=== PATIENT | female | born 1985 ===

== ENCOUNTER 2017-11-12 19:58 | Inpatient (IN) | payer MEDICAID ==
[2017-11-12 20:19] VITALS: BMI 28.3
[2017-11-12] MEDS ORDERED: Oxytocin 30 units/LR 500ML 30 U/500 ML BAG IV ONE (21:48)
[2017-11-12] MEDS: Lactated Ringer's 1,000 ML IV ONE (23:30)
[2017-11-12] MEDS ORDERED: Oxytocin 30 UNITS in Sodium Chloride 0.9% 500 ML IV ONE (23:42)
[2017-11-13 00:08] LABS: BASO % 0.1 % (0.0-2.0); HEMOGLOBIN 11.4 g/dL (12.0-16.0); LYMPH % 7.6 % (20.0-40.0); MEAN CORPUSCULAR HEMOGLOBIN 26.6 pg (27.0-31.0); MEAN PLATELET VOLUME 9.5 fl (7.2-11.7); MONO # 0.2 K/uL (0.0-0.8); MONO % 1.2 % (0.0-10.0); NEUT # 12.1 K/uL (1.8-7.0); NEUT % 91.1 % (50.0-75.0); NRBC % 0.1 % (0.0-0.0); PLATELET COUNT 221 K/uL (130-400); RBC 4.29 Mil/uL (3.80-5.20); RED CELL DISTRIBUTION WIDTH 14.2 % (11.5-14.5); WHITE BLOOD COUNT 13.3 K/uL (4.8-10.8)
--- NOTE | 2017-11-13 00:10 | OBADHP ---
Datetime: 11/12/2017 23:45 IP Adm Impression Other: PPROM, Labor Admit Comment, IP Provider: at 34.0 wks GA transferred from due to PPROM and labor. Pt presented to hospital c/o contractions. While at pt grossly ruptured, pt c/o leaking fluid si nce. Denies VB. Reports good FM. Pt reports course unremarkable. PMHx denies PSHx denies Meds PNV OBHx x 2 SocHx No tob,etoh,drugs PhysExam: refer to findings A: 34.0wks GA with PPROM, labor; Category I FHT P: I discussed case with MFM who recommended delivery. I discussed plan with patient. I discussed w ith patient the risks of prematurity and also discussed the risk of maintaining after ROM a t 34wks GA. I recommended augmentation for delivery. After discussion of all options, pt agrees wit h plan. All done through paleobotanist. Plan for pitocin augmentation, IV abx for GBS proph. Neonatology notified. Pelvic Type - PN: Adequate Extremities - PN: Normal Abdomen - PN: Normal Back - PN: Normal Breast - PN: Normal Lungs - PN: Normal Heart - PN: Normal Thyroid - PN: Normal Neurologic - PN: Normal HEENT - PN: Normal General - PN: Normal FHR - Baseline A Provider: 120s-130s Membranes, Provider: Ruptured Contraction Comments Provider: q4-5min Comments, ACOG Physical Exam: Bedside sono- vertex presentation Vital Signs Provider: Reviewed; Within Normal Limits IP Chief Complaint: Uterine contractions; Suspected ruptured membranes NICHD Variability Prov Fetus A: Moderate 6-25bpm NICHD Accel Fetus A IP Provider: 15X15 FHR Category Provider Fetus A: Category I NICHD Decel Fetus A IP Provider: None Dilatation, Provider: 2 Effacement, Provider: 25 Station, Provider: -3 Genitourinary Exam: Normal DTRs - PN: Normal EGA AdmitDate IP: 34.0 IP Admit Plan: Admit to unit; Initiate labor protocol
[2017-11-13] MEDS: Lactated Ringer's 1,000 ML IV ONE (01:00)
[2017-11-13 01:31] LABS: LYMPHOCYTE 8 % (20-50); MONOCYTE 1 % (0-10); NEUTROPHIL 91 % (42-75); TOTAL CELLS COUNTED 100
[2017-11-13 01:32] LABS: HYPOCHROMIC SLIGHT; PLATELET ESTIMATE NORMAL (NORMAL); TOXIC GRANULATION PRESENT
[2017-11-13] MEDS: Lactated Ringer's 1,000 ML IV SCH ×3 (02:00→17:30)
[2017-11-13] MEDS: AMPicillin 1 GM in Sodium Chloride 0.9% 100 ML IVPB SCH ×6 (04:15→22:43)
[2017-11-13] MEDS ORDERED: Betamethasone Soluspan 30 mg/5mL Inj Susp IM ONE (09:08)
--- NOTE | 2017-11-13 09:12 | OBPN ---
Datetime: 11/13/2017 09:00 IP Progress Impression: Reassuring heart rate IP Informed Consent Obtain: Vaginal Delivery; Risks, Benefits and Alternatives Discussed IP Progress Plan: Continue present management; Augmentation; Anticipate Vaginal Delivery Contraction Comments Provider: 2-4m IP Progress Note Comment: OB Hospitalist note : sign out rec'd 34w PROM / transfer from /[facility]...on Pitocin. SHe is hungry and requesting to eat. PLAN: Discussion with patient. Will hold Pitocin, give second dose of Betamethasone >12h from last dose and allow to eat. Will re-evaluate and re-estart pitocin FHR Category Provider Fetus A: Category I Datetime: 11/12/2017 23:45 Membranes, Provider: Ruptured FHR - Baseline A Provider: 120s-130s Vital Signs Provider: Reviewed; Within Normal Limits NICHD Accel Fetus A IP Provider: 15X15 NICHD Variability Prov Fetus A: Moderate 6-25bpm Dilatation, Provider: 2 Effacement, Provider: 25 Station, Provider: -3 NICHD Decel Fetus A IP Provider: None
--- NOTE | 2017-11-13 09:27 | OBPN ---
Datetime: 11/13/2017 09:20 IP Progress Note Comment: Notified that she ate half her meal and vomited - SVE 2-3cm long and high. Sonogram done by me cep WIll keep NPO/Pitocin off FHR Category Provider Fetus A: Category I Dilatation, Provider: 2-3 Effacement, Provider: long
[2017-11-13] MEDS ORDERED: Fentanyl/Bupivacaine HCl 250 ML EPI ONE (13:58)
--- NOTE | 2017-11-13 23:02 | OBPN ---
Datetime: 11/13/2017 22:59 IP Progress Impression: Reassuring heart rate IP Progress Plan: Augmentation; Anticipate Vaginal Delivery Membranes, Provider: Ruptured Contraction Comments Provider: 2-5m FHR - Baseline A Provider: 130 Presentation-Admit: Vertex IP Progress Note Comment: She started to feel more pain. She was seen by Dr Wang - adjusted epid ural. Se feels better. A; Latent phase of labor PPROM PLAN cont Ampicillin; pitocin at 18miu/h NICHD Accel Fetus A IP Provider: 15X15 FHR Category Provider Fetus A: Category I NICHD Variability Prov Fetus A: Moderate 6-25bpm Dilatation, Provider: 4 Effacement, Provider: 75 Station, Provider: -1 NICHD Decel Fetus A IP Provider: None Datetime: 11/13/2017 14:20 IP Informed Consent Obtain: Vaginal Delivery; Risks, Benefits and Alternatives Discussed Pool Provider: Positive Datetime: 11/13/2017 12:16 Vital Signs Provider: Reviewed; Within Normal Limits
[2017-11-14] MEDS: AMPicillin 1 GM in Sodium Chloride 0.9% 100 ML IVPB SCH (02:40)
[2017-11-14] MEDS ORDERED: Lidocaine 2% PF (10 ml) Amp ONE (03:31)
--- NOTE | 2017-11-14 03:58 | OBPN ---
Datetime: 11/14/2017 03:11 IP Progress Plan Other: Hold Pitocin IP Progress Impression Other: Active phase of labor / deceleratoins IP Progress Impression: labor IP Progress Plan: Anticipate Vaginal Delivery FHR - Baseline A Provider: 140 Presentation-Admit: Vertex IP Progress Note Comment: Patient is a 34wk admiitted for PPROM/Pre term labor, we were notifie d due to a fewdecelerations noted on the heart tracings. Readjusted and repositioned the mother to left lateral decubitus, gave her supplemental oxygen, Pa tient is 9cm dilated, held the pitocin for now Continue to monitor and assess mother and heart tracing Karen Denise M.D. PGY-1 Case seen and discussed with Dr. Grey OB Hospitalist on-call. Notified of some declerations noted and that she was 7-8cm dilated. She w as comfortable. Pitocin held. SVE 9cm 90% 0 station.Bloody show noted. FHR tracing improved 140's mo nitor FH with left lateral/O2/Pitocin on hold...Nursery and Filter Operator notified of progress Vital Signs Provider: Reviewed NICHD Accel Fetus A IP Provider: 15X15 FHR Category Provider Fetus A: Category II NICHD Variability Prov Fetus A: Moderate 6-25bpm Dilatation, Provider: 9 Effacement, Provider: 90 Station, Provider: 0 NICHD Decel Fetus A IP Provider: Variable
--- NOTE | 2017-11-14 04:00 | OBPN ---
Datetime: 11/14/2017 03:58 IP Progress Impression: Normal progression of labor; Reassuring heart rate IP Progress Plan: Augmentation; Anticipate Vaginal Delivery Pool Provider: Positive Contraction Comments Provider: 3-5m FHR - Baseline A Provider: 140 Presentation-Admit: Vertex IP Progress Note Comment: FH tracing improved. Earlier Pitocin was at 18miu/h...Pitocin held and no w will restart at 2miu/h NICHD Accel Fetus A IP Provider: 10X10 FHR Category Provider Fetus A: Category I NICHD Variability Prov Fetus A: Moderate 6-25bpm Dilatation, Provider: 9 Effacement, Provider: 90 Station, Provider: 0 NICHD Decel Fetus A IP Provider: None
[2017-11-14] MEDS ORDERED: Oxytocin 30 UNITS in Sodium Chloride 0.9% 500 ML IV ONE (05:05)
[2017-11-14] MEDS ORDERED: ceFAZolin IV 2 gm in Dextrose 2 GM/50 ML BAG IVPB ONE (05:44)
[2017-11-14] MEDS ORDERED: ceFAZolin IV 2 gm in Dextrose 2 GM/50 ML BAG IVPB STA (05:45)
[2017-11-14] MEDS ORDERED: Ketamine 50 mg/ml Inj (10 ml) ONE (06:02)
[2017-11-14] MEDS ORDERED: Midazolam 2 MG/2 ML VIAL ONE (06:21)
[2017-11-14] MEDS ORDERED: Bisacodyl 5mg EC Tab PO PRN (07:08)
[2017-11-14] MEDS ORDERED: Oxycodone/Acetaminophen 5/325 mg Tab PO PRN (07:08)
[2017-11-14] MEDS ORDERED: Oxytocin 10 Units/ml Inj ONE ×2 (07:45→08:21)
[2017-11-14] MEDS ORDERED: Succinylcholine 200 mg/10 ml Inj IV ONE (07:46)
[2017-11-14] MEDS ORDERED: Etomidate 20 mg/10ml Inj IV ONE (07:46)
[2017-11-14] MEDS ORDERED: Cellulose Hemostat 2X3 Sheet ONE (08:00)
[2017-11-14] MEDS ORDERED: Absorbable Gelatin Sponge Size 12-7 ONE (08:01)
[2017-11-14] MEDS ORDERED: Rocuronium 10 mg/ml (5 ml) ONE (08:03)
[2017-11-14] MEDS ORDERED: Morphine 1 mg/ml preservative-free Inj(Duramorph) ONE (08:18)
[2017-11-14] MEDS ORDERED: Phenylephrine 10 mg/ml Inj ONE (09:51)
--- NOTE | 2017-11-14 09:51 | OBPN ---
Datetime: 11/14/2017 05:45 IP Progress Impression Other: vaginal bleeding / possible aburption of placenta IP Informed Consent Obtain: Section Delivery; Risks, Benefits and Alternatives Discussed IP Progress Plan: Deliver- Section Amniotic Fluid Color, Provider: Bloody IP Progress Note Comment: Notified that she had tried to push...VB noted. SVE 10cm/100/0 face presenation - VB possible abruptio placenta Maternal HR 130's/ 130's A: Second stage of labor / VB PLAN: With supervisor record press present, conditoin was explained to patient and her . Also C/S was explained with its risks/complications. Informed consent obtained for C/S and possible blood transfu emilia.
[2017-11-14 10:00] LABS: BASO # 0.1 K/uL (0.0-0.2); BASO % 0.6 % (0.0-2.0); EOS % 0.1 % (0.0-4.0); HEMOGLOBIN 11.8 g/dL (12.0-16.0); LYMPH % 13.5 % (20.0-40.0); MEAN CELL VOLUME 85.6 fl (81.0-99.0); MEAN CORPUSCULAR HEMOGLOBIN 28.4 pg (27.0-31.0); MEAN CORPUSCULAR HGB CONC 33.1 g/dL (33.0-37.0); MEAN PLATELET VOLUME 8.9 fl (7.2-11.7); MONO # 1.3 K/uL (0.0-0.8); MONO % 5.9 % (0.0-10.0); NEUT % 79.9 % (50.0-75.0); NRBC % 0.1 % (0.0-0.0); RBC 4.15 Mil/uL (3.80-5.20); RED CELL DISTRIBUTION WIDTH 15.1 % (11.5-14.5); WHITE BLOOD COUNT 22.5 K/uL (4.8-10.8)
[2017-11-14] MEDS: Lactated Ringer's 1,000 ML IV SCH ×5 (10:10→23:42)
[2017-11-14 10:11] LABS: ALB/GLOB RATIO 0.9 (1.0-2.1); ALBUMIN 2.1 g/dL (3.5-5.0); ALT/SGPT 18 U/L (9-52); AST/SGOT 28 U/L (14-36); BLOOD UREA NITROGEN 8 mg/dl (7-17); CALCIUM 7.2 mg/dL (8.4-10.2); GFR NON-AFRICAN AMERICAN > 60
[2017-11-14 10:12] LABS: PROTHROMBIN TIME 11.2 Seconds (9.8-13.1)
[2017-11-14] MEDS ORDERED: Sodium Chloride 0.9% 1,000 ML IV SCH (10:15)
[2017-11-14] MEDS ORDERED: LIDOCAINE 2% 10ML 20 MG/ML VIAL IJ ONE (10:18)
--- NOTE | 2017-11-14 10:20 | PCM.RRT ---
<Leon Sow - Last Filed: 11/14/17 10:52> FUR FINISHER SEAMSTRESS Nurse Assessment - Situation FUR FINISHER SEAMSTRESS Reason for Call: Hypotension - IV IV Inserted during FUR FINISHER SEAMSTRESS?: Yes I.Reason for FUR FINISHER SEAMSTRESS - A) Acute Change in Patient: (Select all that apply): Staff member or family is worried about patient, Acute change in SBP below Subjective: 32 y/o female, , 34 week gestation, S/P Cesarian section for abruptio placenta in the morning reported to have worsening hypotension. FUR FINISHER SEAMSTRESS was called. Initial vitals 72/51 worsened to 58/32, Pulse 101, SpO2 99. Patient awake, oriented, responsive to commands with no visible bleeding per vagina. Hypotension most likely secondary to PPH. 3 NS bolus given. Patient transferred to ICU. CBC, CMP, PT, PTT, INR and fibrinogen ordered STAT. 3 more PRBC ordered. Methergin and trenexamic acid administered. Continue PRBC and normal saline. After 10 mins, BP improved to 82/55, RR 17, Pulse 102 and o2 sat 100. EKG to be done stat. Patient has lost about 1 L blood during C Section. Patient has received 3 PRBC, 2-3 L NS, O2, oxitocin drip and methergin since the morning. F/U labs. IR consult. Patient to remain in ICU. - Neurological Status (Select all that apply): Responsive, Verbal, Confused, Lethargic - Respiratory Oxygen Delivery Method: Nasal Cannula @L/min - Constitutional Appears: No Acute Distress - Head Head Exam: ATRAUMATIC, NORMAL INSPECTION, NORMOCEPHALIC - Respiratory Exam Respiratory Exam: Clear to Ausculation Bilateral, NORMAL BREATHING PATTERN. absent: Respiratory Distress - Cardiovascular Exam Cardiovascular Exam: Tachycardia, REGULAR RHYTHM, +S1, +S2. absent: Murmur - GI/Abdominal Exam GI & Abdominal Exam: Distended, Tenderness - Neurological Exam Neurological Exam: Alert, Awake, Oriented x3 Plan - Assessment of Findings&Treatment Plan 32 y/o female, , 34 week gestation, S/P Cesarian section for abruptio placenta in the morning has severe hypotension. - Continue Tranexamic acid and methergin - Continue NS and PRBC - IR for embolization - Continued to be observed by Ob-Gum Sprayer - Pt to remain in ICU - Monitor vitals, F/U Labs - Monitor for acute changes <Emilia Ricardo - Last Filed: 11/14/17 15:47> Attending/Attestation - Attestation I have personally seen and examined this patient.: Yes I have fully participated in the care of the patient.: Yes I have reviewed all pertinent clinical information, including history, physical exam and plan: Yes Notes (Text): Hypovolemic Shock due to Hemorrhage due to Abruptio Placenta - IVF hydration - TRansfer pt to ICU stat -Transfuse PRBC ( 3 has been given - will crossmatch 3 more units ) - Methergin 0.2 stat IM - Tranexamic acid IV - Plan for Uterine artery embolization by IR- DR Thacker consulted - Discussed case with Dr Grey ( OB) and with guyline operator - Dr Robertson -rpt labs - CBC, CMP, Coags, Fibrinogen
[2017-11-14] MEDS ORDERED: Iodixanol 320 MG/ML 100 ML BOTTLE IV ONE (10:52)
[2017-11-14] MEDS ORDERED: Iodixanol 320 mg/ml 50 ml Sol IV ONE (10:52)
[2017-11-14] MEDS: Simethicone 80 mg Chewtab PO SCH ×3 (11:00→22:00)
--- NOTE | 2017-11-14 11:21 | PCM.IRPREO ---
Pre Procedure Note - History Proposed Procedure: Uterine artery embolization Pre-Op Diagnosis: Placenta abruptio, post bleed. - Pre Procedure Were any radiologic studies performed in the last 12 months: Not Applicable Was medical management performed in the past 24 months: Yes List of medical management performed: Blood transfusion Clinical indication for the procedure: Uterine bleed Have risks and benefits been explained to the patient: Yes Risks and benefits been explained to the patient: Bleeding, hematoma, vessel injury, uterine injury/infrarction, infection, embolism. Have alternatives to surgery explained to the patient as applicable: Yes - Allergies Allergies: Allergies No Known Allergies Allergy (Verified 11/12/17 20:15) - Physical Exam Vital Signs: Vital Signs 11/14/17 10:40 Pulse Rate 86 Respiratory 22 Rate Blood Pressure 134/54 L O2 Sat by Pulse 100 Oximetry Mental Status: Alert & Oriented x3 Neuro: WNL Heart: WNL Lungs: WNL GI: WNL - Impression Impression: Pt s/p with vaginal bleed. Pt had episodes of hypotension and is being tranfused PRB. IR requested to perform uterine artery embolization. Procedure and associated risks/benefits explained to the pt. Informed consent obtain via ticket printer and tagger. Pt. Evaluated Today:Candidate for Anesthesia & Procedure: no - Date & Time Date: 11/14/17 Time: 10:45
--- NOTE | 2017-11-14 11:25 | PCM.SURG1 ---
Surgeon's Initial Post Op Note - Surgeon's Notes Surgeon: Valeriano Hogue MD Wire Weaver Helper: NONE Type of Anesthesia: Local Pre-Operative Diagnosis: Uterine bleed, placental abruptio Operative Findings: Uterine artery angiogram showed vasospams. No obvious bleed. Post-Operative Diagnosis: Uterine bleed, placenta abruptio Operation Performed: Right and left UAE with embospheres micropheres, 500 -700 microns. A total of half vial was used to achieve hemostasis. Specimen/Specimens Removed: None Estimated Blood Loss: EBL {In ML}: 5 Blood Products Given: N/A Drains Used: No Drains Post-Op Condition: Fair Date of Surgery/Procedure: 11/14/17 Time of Surgery/Procedure: 11:20
--- NOTE | 2017-11-14 11:49 | VASCULAR ---
PROCEDURE: Date of procedure: 11/14/2017 Procedure: 1. Bilateral uterine artery embolization (CPT 58983) 2. Selective catheterization of left uterine artery 3. Selective catheterization of the right uterine artery Medications: 2 % Lidocaine 10 cc EBL: 5 ml Fluoro time: 7.06 minutes Radation: 294.1 mGy HISTORY: Thirty-four week gestation, status post section, uterine bleed from placental abruption TECHNIQUE: Following informed consent the procedure time-out, patient placed supine on the interventional table. Her right groin was prepped and draped in the usual sterile fashion. Following informed consent, the right common femoral artery was accessed with micropuncture technique and a guidewire was advanced under fluoroscopic guidance into the abdominal aorta. Through a 4 Senegalese vascular sheath, a 4 Sen[place]e cobra glide catheter was advanced over the wire and used to select the left internal iliac artery. A pelvic angiogram was performed in the ELIZABETH projection. The pelvic angiogram showed spasm of the left uterine artery arising from the anterior division of the left internal iliac artery. The left uterine artery was then catheterized with a Progreat microcatheter catheter. A selective left uterine artery angiogram was performed. Left uterine artery angiogram showed no obvious bleed. The left uterine artery was then embolized with a embosphere microsphere measuring 5 inches- 700 microns until near stasis of blood flow was achieved. Less than 1/4 vile of embolic particles was utilized. The cobra glide catheter was then positioned within the ipsilateral right internal iliac artery and a pelvic angiogram was performed in the CALLES projection. Pelvic angiogram showed a small right uterine artery arising from the anterior division of the right internal iliac artery. Right uterine artery has had vasospams. The uterine artery was catheterized with Progreat microcatheter. A selective right uterine artery angiogram was performed. Right uterine artery angiogram showed no bleed. The right uterine artery was embolized with embospheres microspheres measuring 500-700 microns in diameter on still near stasis multiples achieve. Post embolization angiogram showed delayed filling of the right and left uterine artery. The vascular sheaths were removed and hemostasis achieved with a 6 Sen[place]alese Angio-Seal followed by manual compression. A postprocedure ultrasound showed flow within the uterine femoral artery proximal and distal to the Angio-Seal closure device. IMPRESSION: 1. Selective right and left renal artery angiogram showed vasospasm of the artery and no bleed. 2. Right and left uterine artery were embolized with embosphere microsphere measuring 500-700 microns until stasis of blood flow was achieved. Less than 1/2 vial of embolic particles utilize for procedure.
[2017-11-14 12:43] LABS: HEMOGLOBIN 12.3 g/dL (12.0-16.0); MEAN CELL VOLUME 87.7 fl (81.0-99.0); MEAN CORPUSCULAR HGB CONC 31.9 g/dL (33.0-37.0); RBC 4.41 Mil/uL (3.80-5.20); WHITE BLOOD COUNT 22.7 K/uL (4.8-10.8)
[2017-11-14] MEDS: Multivitamin With Minerals Tab PO SCH (14:50)
[2017-11-14] MEDS: Oxycodone/Acetaminophen 5/325 mg Tab PO PRN (17:30)
[2017-11-14 18:04] LABS: HEMOGLOBIN 10.7 g/dL (12.0-16.0); MEAN CELL VOLUME 85.6 fl (81.0-99.0); MEAN CORPUSCULAR HGB CONC 32.7 g/dL (33.0-37.0); RBC 3.84 Mil/uL (3.80-5.20); RED CELL DISTRIBUTION WIDTH 14.7 % (11.5-14.5)
[2017-11-14 18:26] LABS: BLOOD UREA NITROGEN 10 mg/dl (7-17); CALCIUM 7.4 mg/dL (8.4-10.2); GFR NON-AFRICAN AMERICAN > 60
[2017-11-15] MEDS: Lactated Ringer's 1,000 ML IV SCH ×2 (02:27→05:01)
[2017-11-15] MEDS: Oxycodone/Acetaminophen 5/325 mg Tab PO PRN ×2 (04:52→16:45)
[2017-11-15] MEDS: Simethicone 80 mg Chewtab PO SCH ×4 (04:52→21:34)
--- NOTE | 2017-11-15 04:53 | PN ---
DATE: 11/14/2017 LOCATION: The patient in ICU, bed 421. TIME SPENT: 35 minutes. SUBJECTIVE: The patient is seen and evaluated at the bedside. Past medical, surgical, social and family history reviewed as noted in H and P. A 32-year-old female 3, para 2 at 34 weeks gestation with uterine contractions, noted to have grossly contractions with fluid leaking since contraction, underwent C section, noted to have excessive bleeding from the uterus, resuscitated with 3 units of packed red blood cells and IV fluid. The patient was noted to be hemodynamically unstable with a drop in the blood pressure. Subsequently seen by Interventional Radiology, underwent bilateral uterine artery embolization. Now remains alert and awake, follows commands appropriate. Denies shortness of breath, chest pain, or palpitation. Complaining of discomfort at the site of incision but no further active bleeding noted. ALLERGIES: THE PATIENT HAS NO ALLERGY DOCUMENTED. CURRENT MEDICATIONS: Reviewed. Include Dulcolax 10 mg p.o. daily p.r.n. for constipation, Colace 100 mg p.o. b.i.d., Motrin 600 mg p.o. every 6 hours p.r.n. for pain, Ringer's lactate at 150 mL/hour, multivitamin tablet daily, Percocet 5/325 mg 2 tablets p.o. every 4 hours p.r.n., oxytocin at 1000 mL at 125 mL, Simethicone 80 mg p.o. every 6 hours. LABORATORY DATA: WBC 22.7, hemoglobin 12.3, hematocrit 38.7, platelet count 163. SMA-7, sodium 135, potassium 4.4, chloride of 109, CO2 of 17, blood urea nitrogen 8, creatinine 0.5, random glucose 142, calcium 7.2, total bilirubin 0.7, AST 28, ALT 18, alkaline phosphatase 94, total protein 4.4, albumin 2.1. Serology, RPR nonreactive, hepatitis B surface antigen negative, HIV antibody rapid screen nonreactive. Microbiology, no report. Electrocardiogram sinus tachycardia, normal electrical axis. No ST-T changes. IMPRESSION AND PLAN: A 32-year-old female with no significant medical history in the past, status post labor, with profuse bleeding from uterine atony and/or due to the uterine artery bleeding, status post repair and embolization of the bilateral uterine artery, remains hemodynamically stable. Closely monitor urine output, blood pressure, heart rate, electrolytes, CBC. Transfuse as needed. Continue IV hydration at 150 mL per hour. Deep venous thrombosis prophylaxis with Venodyne boots. May start feeding as tolerated. Incentive spirometry to prevent postop atelectasis. Layo Robertson MD
[2017-11-15 05:04] LABS: HEMOGLOBIN 9.4 g/dL (12.0-16.0); MEAN CELL VOLUME 85.5 fl (81.0-99.0); MEAN CORPUSCULAR HGB CONC 32.8 g/dL (33.0-37.0); RBC 3.35 Mil/uL (3.80-5.20); RED CELL DISTRIBUTION WIDTH 15.2 % (11.5-14.5); WHITE BLOOD COUNT 17.1 K/uL (4.8-10.8)
[2017-11-15 05:25] LABS: ALB/GLOB RATIO 0.9 (1.0-2.1); ALT/SGPT 23 U/L (9-52); AST/SGOT 24 U/L (14-36); BLOOD UREA NITROGEN 5 mg/dl (7-17); CALCIUM 7.8 mg/dL (8.4-10.2); GFR NON-AFRICAN AMERICAN > 60
[2017-11-15] MEDS: Multivitamin With Minerals Tab PO SCH (08:15)
[2017-11-15] MEDS ORDERED: Lactated Ringer's 1,000 ML IV SCH (08:45)
--- NOTE | 2017-11-15 09:57 | CARD ---
APPROVED REPORT Date of service: 11/14/2017 EKG Measurement Heart [id number] <Conclusion> Sinus rhythm with short NV Otherwise normal ECG
--- NOTE | 2017-11-15 10:28 | CP.PCM.PN ---
Subjective - Date & Time of Evaluation Date of Evaluation: 11/15/17 Time of Evaluation: 10:15 - Subjective Subjective: 32 yo s/p was seen this AM. Spoke with Dr. [place], and patient is cleared for transfer to unit. Case discussed with Dr. Matilda Bernardo PGY-1 Objective - Vital Signs/Intake and Output Vital Signs (last 24 hours): Temp Pulse Resp BP Pulse Ox 99.2 F 106 H 20 112/70 95 11/15/17 08:00 11/15/17 08:00 11/15/17 08:00 11/15/17 08:00 11/15/17 08:00 Intake and Output: 11/15/17 11/15/17 06:59 18:59 Intake Total 2025 120 Output Total 1300 250 Balance 725 -130 - Medications Medications: Current Medications Bisacodyl (Dulcolax) 10 mg PO DAILY PRN PRN Reason: Constipation Docusate Sodium (Colace) 100 mg PO BID [facility] Last Admin: 11/15/17 08:15 Dose: 100 mg Lactated Ringer's (Lactated Ringer's) 1,000 mls @ 40 mls/hr IV .Q24H [facility] Last Admin: 11/15/17 09:45 Dose: 40 mls/hr Ibuprofen (Motrin Tab) 600 mg PO Q6H PRN PRN Reason: Pain, Mild (1-3) Last Admin: 11/15/17 08:15 Dose: 600 mg Methylergonovine Maleate (Methergine) 0.2 mg PO QID [facility] Last Admin: 11/15/17 08:44 Dose: 0.2 mg Multivitamins/Minerals (Therapeutic-M Tab) 1 tab PO DAILY [facility] Last Admin: 11/15/17 08:15 Dose: 1 tab Oxycodone/Acetaminophen (Percocet 5/325 Mg Tab) 1 tab PO Q4 PRN PRN Reason: Pain, moderate (4-7) Stop: 11/17/17 07:09 Last Admin: 11/15/17 04:52 Dose: 1 tab Oxycodone/Acetaminophen (Percocet 5/325 Mg Tab) 2 tab PO Q4 PRN PRN Reason: Pain, severe (8-10) Stop: 11/17/17 07:09 Last Admin: 11/15/17 09:46 Dose: 2 tab Sennosides (Senokot Tab) 17.2 mg PO HS [facility] Last Admin: 11/14/17 23:51 Dose: 17.2 mg Simethicone (Mylicon Chew Tab) 80 mg PO Q6 [facility] Last Admin: 11/15/17 09:46 Dose: 80 mg - Labs Labs: 11/15/17 04:30 11/15/17 04:30 PT 11.2 Seconds (9.8-13.1) 11/14/17 09:57 INR 1.0 (0.9-1.2) 11/14/17 09:57 APTT 29.0 Seconds (25.6-37.1) 11/14/17 09:57
[2017-11-15] MEDS ORDERED: Bisacodyl 5mg EC Tab PO PRN (12:57)
--- NOTE | 2017-11-15 15:32 | PN ---
DATE: 11/15/2017 CRITICAL CARE PROGRESS NOTE. LOCATION: The patient in ICU, bed #421. TIME SPENT: 35 minutes. SUBJECTIVE: The patient is seen and evaluated at the bedside along with a resident who speaks some Hungarian. Case discussed in a.m. rounds in ICU. PAST MEDICAL, SURGICAL, AND SOCIAL HISTORY: Noted. A 32-year-old female, 3, para 2, status post emergent for placenta previa complicated with excessive bleeding, status post bilateral uterine artery embolization, overnight normotensive, afebrile. Telemetry, sinus rhythm. PHYSICAL EXAMINATION: GENERAL: This morning alert, awake, follows commands appropriate. Denies shortness of breath, chest pain, or palpitation. Mild abdominal discomfort at the site of incision. No dysuria or hematuria. VITAL SIGNS: Temperature 99.2, heart rate 98 to 112 in sinus rhythm, blood pressure 112/70 to 120/73, mean arterial pressure 84 to 88, respiratory rate 20 to 21, saturations 95% on room air. Intake 5000, output 1600, positive balance 3400 mL. Urine output 1600 mL. Weight 150 pounds. HEAD, EYES, EARS, NOSE, AND THROAT: Pupils are reactive. Conjunctivae are pink. Sclerae are white. NECK: Supple. Trachea is central. CHEST: Bilateral breath sounds. Clear to auscultation. HEART: Rhythm regular. S1 and S2 normal. No audible murmur. ABDOMEN: Bowel sounds are present, soft, mild distention. Incision site without drainage. EXTREMITIES: Without clubbing, SCD in place. NEUROLOGIC: Nonfocal. CURRENT MEDICATIONS: Dulcolax 10 mg p.o. daily, Colace 100 mg p.o. b.i.d., Motrin 600 mg p.o. every 6 hours p.r.n., Ringer's lactate at 40 mL/hour, multivitamin tablet daily, Percocet 5/325 mg two tablets p.o. every 4 hours p.r.n., Senokot 17.2 mg p.o. at bedtime, and Mylicon 80 mg p.o. every 6 hours. LABORATORY DATA: WBC 17.1, hemoglobin 9.4, hematocrit 28.6, and platelet count 125. PT 11.2, INR 1, PTT 29, and fibrinogen 252. SMA-7; sodium 134, potassium 4, chloride 107, CO2 of 21. Blood urea nitrogen 5, creatinine 0.5, random glucose 112, calcium 7.8, total bilirubin 0.3, AST 24, ALT 23, alkaline phosphatase 74, total protein 4.3, and albumin 2. Serology, RPR nonreactive. Hepatitis B surface antigen negative. HIV antibody rapid screen nonreactive. Microbiology, none reported. IMPRESSION AND PLAN: 1. Neurology: Alert, awake, and oriented to name, place, and time. 2. Pulmonary: Possible atelectasis secondary to postop. Continue incentive spirometry. 3. Cardiac: Mild tachycardia, normotensive secondary to post-procedure/inflammation. 4. Endocrine: No acute issues. 5. Renal: No electrolyte abnormalities. Adequate urine output. Closely monitor intake and output. Continue fluids as needed. 6. Hematology: Anemia secondary to acute blood loss, status post transfusion of three units packed red blood cells. Monitor. Consider adding iron supplement and multivitamin tablet. Continue deep vein thrombosis prophylaxis. The patient may be transferred to L&T postop care. Layo Rboertson MD
--- NOTE | 2017-11-15 18:52 | OBPPN ---
Datetime: 11/15/2017 09:23 PP Pain Prov: Within normal limits PP Nausea Prov: Denies PP Flatus Prov: Yes PP BM Prov: No PP Heart Prov: Normal PP Lungs Prov: Normal PP Abdomen/Uterus Prov: Normal PP Lochia Prov: Normal PP Extremities Prov: Normal PP C/S Incision Prov: Normal PP Impression Prov: Normal progression PP Plan Prov: Continue present management PP Progress Note Prov: S: Pt is a 32 yo s/p emergency C section due to malpresentation and placental abruption on 11/14/17 POD 1, patient was transferred to ICU bed 421 after a period of h ypotensive shock, transfused 3 units PRBCs and received uterine artery embolization . Seen and examin ed at bedside this am. Patient doing well and has been stabilized, reports mild pelvic pain which is controlled with pain medicine. Has not ambulated yet. Wants to bottle and breast feed. Tolerating a l iquid diet. Lochia is similar to menses. Voiding in Bonds with no blood noted- last night urine outpu t was 1300cc patient denies SOB , Patient has been passing gas, denies having a bowl movement. Denies fever/chills, nausea/vomiting, CP, diarrhea/constipation or dizziness. O: BP:112/70, HR:106, T:99.2F, RR:20 O2 Sat 98 on 3L CBC-9.4/28.6,WBC-17.1 (trending down from 22)(11/15/17 4:30am) blood type: O+, rubella: Immune PHYSICAL EXAM: GEN: AAOx3, Resting comfortably in bed, NAD HEENT: NCAT, White sclera, pink conjunctiva, oral mucosa moist. LUNGS: CTA B/L, no wheezing, rhonchi, or rales, B/L chest rise CVS: RRR, S1, S2, No murmurs, rubs, gallops ABD: ND, +BS, firm fundus @ umbilical level. Soft, appropriate TTP, Incision- clean, dry intact, n o redness has yamileth EXT: no edema, negative Jonnie's sign, calves non tender NEURO/Psych: no gross focal deficit, preserved affect and mood. A/P 32 y/o s/p c emergency C section on 11/14/17 POD 1. Pt afebrile, tolerating pain with medic ation, tolerating liquid diet, adequate urine output. -Removed Dressing and Bonds, advanced to regular diet, -Ambulate before being transferred back to mother baby -Ordered Incentive Spirometry Q2hr, removed Nasal canula, Decreased LR 1L from rate of 75 to rate of 40, per Dr. Robertson- ICU attending, doesn't think patient needs CXR for fluid overload thinks pt m ay just have some atelectasis from post op, WBC count 17.1- may be due to inflamation continue to mon itor -Transferring out of ICU down to post per Dr. Castellano order -Encouraged breast feeding, female baby- no circ -Ibuprofen 600mg mild pain -Percocet 5/35mg 1 tab po q 4hr for severe pain -PNV 1 tab po daily -Post op contraception-IUD -F/U1 wk C section wound, 4-6 weeks for post- visit - Continue to monitor pt and note any changes in vitals Karen Denise M.D. PGY-1 Patient was seen and case discussed with Dr. Grey OB Hospitalist note: She was seen in ICU. She was feeling much better. Case rev'd with ICU attend ing. Juanita for transfer. Will contineu postop care OB floor IP PP Procedures: None; Transfusion Vital Signs Provider PP: Reviewed Vital Signs Provider Details PP: WNL,Slightly tachy 106- may be due to pain response
[2017-11-16] MEDS: Simethicone 80 mg Chewtab PO SCH ×4 (04:31→21:08)
[2017-11-16] MEDS: Oxycodone/Acetaminophen 5/325 mg Tab PO PRN ×3 (04:31→15:13)
[2017-11-16 06:14] LABS: BASO # 0.1 K/uL (0.0-0.2); BASO % 0.5 % (0.0-2.0); EOS % 0.2 % (0.0-4.0); LYMPH % 11.2 % (20.0-40.0); MEAN CELL VOLUME 86.4 fl (81.0-99.0); MEAN CORPUSCULAR HEMOGLOBIN 28.7 pg (27.0-31.0); MEAN CORPUSCULAR HGB CONC 33.2 g/dL (33.0-37.0); MEAN PLATELET VOLUME 8.6 fl (7.2-11.7); MONO # 1.4 K/uL (0.0-0.8); MONO % 7.7 % (0.0-10.0); NEUT # 14.1 K/uL (1.8-7.0); NEUT % 80.4 % (50.0-75.0); RBC 3.14 Mil/uL (3.80-5.20); WHITE BLOOD COUNT 17.6 K/uL (4.8-10.8)
--- NOTE | 2017-11-16 08:41 | OBDS ---
DELIVERY PERSONNEL Delivery Doctor: Chrystal Grey DO (Annotations: Data stored by [facility] on behalf of user) Project Development Leader: Elena RN,Cecelia RN, Wesly FALL, Micaela Anesthesiologist: Dr. Murguia, Dr. Segundo, Dr. Valencia Resident: Dr. Denise MATERNAL INFORMATION Delivery Anesthesia: Epidural Medications in Delivery: Pitocin, At [address] Murguia. Surgicel, Gelfo Estimated Blood Loss (ml): 1999 Placenta Cultured: Yes Maternal Complications: Abruptio Placenta; Premature Rupture of Membranes Provider Comments: Pre Op Dx : Second stage of labor / vaginal bleeding - possible abruption placent a / malpresentation - face Post Op Dx same / uterine atony / left extension of uterine incision -Procedure: Primary LTCS via Pfannenstiel incision --repair of left uterine extension / uterine atery ligation (Left) Surgeon Dr Matilda Worthington / Dr Camelia Wang, Dr Segundo Findings: -blood noted upon entering uterus -Live female delivered from [facility] presentation - 8,9 -Placenta delivered intact manually -Uterine atony noted : given IV Pitocin/Methergine IM -Left uterine extension noted - repaired/left uterine artery ligation -Hemostasis assured - gelfoam and Surgicel placed -Ovaries and tubed WNL -Intraop : PRBC given -transferred in guarded condition to L_D -EBL 2000cc all equipment sponges and needles accounted for LABOR SUMMARY EDC: 12/24/2017 00:00 No. Babies in Womb: 1 Attempted: No Labor Anesthesia: Epidural LABOR INFORMATION Complete Dilatation: 11/14/2017 05:30 Oxytocin: Augmentation Group B Beta Strep: N/A Antibiotics # of Doses: 9 Antibiotics Time of Last Dose: 0555 Steroids Given: Full Course MEMBRANES Membranes Rupture Method: Spontaneous Rupture of Membranes: 11/12/2017 19:42 Length of Rupture (hrs): 34.40 Amniotic Fluid Color: Clear Amniotic Fluid Amount: Moderate STAGES OF LABOR Stage 2 hrs: 0 Stage 2 min: 36 Stage 3 hrs: 0 Stage 3 min: 1 CSECTION DELIVERY Primary Indication: Abruptio Placenta Secondary Indication: Other Other Secondary Indication: MalPresentation CSection Urgency: Emergency CSection Incidence: Primary Labor: Labor Elective: Nonelective CSection Incision: Lower Uterine Transverse Uterine Closure: Double-layer closure BABY A INFORMATION Delivery Date/Time: 11/14/2017 06:06 Method of Delivery: Born in Route : No : N/A Forceps: N/A Vacuum Extraction: N/A Shoulder Dystocia : No SHOULDER DYSTOCIA BABY A Delivery Date/Time: 11/14/2017 06:06 PRESENTATION/POSITION BABY A Presentation: Cephalic Cephalic Presentation: Face Breech Presentation: N/A PLACENTA INFORMATION BABY A Placenta Delivery Time : 11/14/2017 06:07 Placenta Method of Delivery: Manual Removal Placenta Status: Delivered SCORES BABY A Heart Rate 1 min: >100 bpm Resp Effort 1 min: Slow, Irregular Reflex Irritability 1 min: Cough or Sneeze or Pulls Away Muscle Tone 1 min: Active Motion Color 1 min: Body [place], Extremities Blue Resuscitation Effort 1 min: Tactile Stimulation SCORE 1 MIN: 8 Heart Rate 5 min: >100 bpm Resp Effort 5 min: Good Cry Reflex Irritability 5 min: Cough or Sneeze or Pulls Away Muscle Tone 5 min: Active Motion Color 5 min: Body [place], Extremities Blue Resuscitation Effort 5 min: N/A SCORE 5 MIN: 9 INFANT INFORMATION BABY A Gestational Age at Delivery: 34.2 Gestational Status: Infant Outcome : Liveborn Infant Condition : Stable Infant Sex: Female IDENTIFICATION/MEDS BABY A ID Band Number: [id number] WEIGHT/LENGTH BABY A Birthweight (gms): 2230 Weight (lb): 4 Weight (oz): 15 CORD INFORMATION BABY A No. Cord Vessels: 3 Nuchal Cord : N/A Cord Blood Taken: Yes Infant Suction: Mouth; Nose ASSESSMENT BABY A Dining Room Attendant/ALS Called : Yes Infant Care By: Janusz Acharya MZapella RN Transferred To: NICU
--- NOTE | 2017-11-16 08:41 | OBPPN ---
Datetime: 11/16/2017 07:30 PP Pain Prov: Within normal limits PP Nausea Prov: Denies PP Flatus Prov: Yes PP BM Prov: No PP Heart Prov: Normal PP Lungs Prov: Normal PP Abdomen/Uterus Prov: Normal PP CVA Tenderness Prov: Normal PP Extremities Prov: Normal PP C/S Incision Prov: Normal PP Progress Prov: Not Applicable PP Impression Prov: Normal progression PP Plan Prov: Continue present management PP Progress Note Prov: Sh feels much better today. Since coming to PB floor shewa able to walk to b athroom and eat. She saw baby earlier today A: S/P C/S POD3 - abruptio placenta in second stage of labor hemorrhage - uterine atony and repair of left uterine extension S/P CHILLER HAND for low BP/Shock and embolizatoin of uterus day 1 S/P transfusion of 3 units PRBC and 1 unit FFP PLAN: continue postop care; check IVP today. Condition and event of delivery/postop explained to pt. She understands. Vital Signs Provider PP: Reviewed; Within Normal Limits
--- NOTE | 2017-11-16 08:42 | OBDS ---
DELIVERY PERSONNEL Delivery Doctor: Chrystal Grey DO (Annotations: Data stored by [facility] on behalf of user) Employment Director: Elena RN,Cecelia RN, Wesly FALL, Micaela Anesthesiologist: Dr. Murguia, Dr. Segundo, Dr. Valencia Resident: Dr. Denise MATERNAL INFORMATION Delivery Anesthesia: Epidural Medications in Delivery: Pitocin, At [address] Murguia. Surgicel, Gelfo Estimated Blood Loss (ml): 1999 Placenta Cultured: Yes Maternal Complications: Abruptio Placenta; Premature Rupture of Membranes Provider Comments: Pre Op Dx : Second stage of labor / vaginal bleeding - possible abruption placent a / malpresentation - face Post Op Dx same / uterine atony / left extension of uterine incision -Procedure: Primary LTCS via Pfannenstiel incision --repair of left uterine extension / uterine atery ligation (Left) Surgeon Dr Matilda Worthington / Dr Camelia Wang, Dr Segundo Findings: -blood noted upon entering uterus -Live female delivered from [facility] presentation - 8,9 -Placenta delivered intact manually -Uterine atony noted : given IV Pitocin/Methergine IM -Left uterine extension noted - repaired/left uterine artery ligation -Hemostasis assured - gelfoam and Surgicel placed -Ovaries and tubed WNL -Intraop : PRBC given -transferred in guarded condition to L_D -EBL 2000cc all equipment sponges and needles accounted for LABOR SUMMARY EDC: 12/24/2017 00:00 EDC: 12/24/2017 00:00 No. Babies in Womb: 1 Attempted: No Labor Anesthesia: Epidural LABOR INFORMATION Complete Dilatation: 11/14/2017 05:30 Oxytocin: Augmentation Group B Beta Strep: N/A Antibiotics # of Doses: 9 Antibiotics Time of Last Dose: 0555 Steroids Given: Full Course MEMBRANES Membranes Rupture Method: Spontaneous Rupture of Membranes: 11/12/2017 19:42 Length of Rupture (hrs): 34.40 Amniotic Fluid Color: Clear Amniotic Fluid Amount: Moderate STAGES OF LABOR Stage 2 hrs: 0 Stage 2 min: 36 Stage 3 hrs: 0 Stage 3 min: 1 CSECTION DELIVERY Primary Indication: Abruptio Placenta Secondary Indication: Other Other Secondary Indication: MalPresentation CSection Urgency: Emergency CSection Incidence: Primary Labor: Labor Elective: Nonelective CSection Incision: Lower Uterine Transverse Uterine Closure: Double-layer closure BABY A INFORMATION Infant Delivery Date/Time: 11/14/2017 06:06 Method of Delivery: Born in Route : No : N/A Forceps: N/A Vacuum Extraction: N/A Shoulder Dystocia : No SHOULDER DYSTOCIA BABY A Delivery Date/Time: 11/14/2017 06:06 PRESENTATION/POSITION BABY A Presentation: Cephalic Cephalic Presentation: Face Breech Presentation: N/A PLACENTA INFORMATION BABY A Placenta Delivery Time : 11/14/2017 06:07 Placenta Method of Delivery: Manual Removal Placenta Status: Delivered SCORES BABY A Heart Rate 1 min: >100 bpm Resp Effort 1 min: Slow, Irregular Reflex Irritability 1 min: Cough or Sneeze or Pulls Away Muscle Tone 1 min: Active Motion Color 1 min: Body [place], Extremities Blue Resuscitation Effort 1 min: Tactile Stimulation SCORE 1 MIN: 8 Heart Rate 5 min: >100 bpm Resp Effort 5 min: Good Cry Reflex Irritability 5 min: Cough or Sneeze or Pulls Away Muscle Tone 5 min: Active Motion Color 5 min: Body [place], Extremities Blue Resuscitation Effort 5 min: N/A SCORE 5 MIN: 9 INFORMATION BABY A Gestational Age at Delivery: 34.2 Gestational Status: Infant Outcome : Liveborn Infant Condition : Stable Infant Sex: Female IDENTIFICATION/MEDS BABY A ID Band Number: [id number] WEIGHT/LENGTH BABY A Infant Birthweight (gms): 2230 Weight (lb): 4 Weight (oz): 15 CORD INFORMATION BABY A No. Cord Vessels: 3 Nuchal Cord : N/A Cord Blood Taken: Yes Suction: Mouth; Nose ASSESSMENT BABY A Certified Pharmacy Technician/ALS Called : Yes Care By: Janusz Acharya MZapella RN Transferred To: NICU
[2017-11-16] MEDS ORDERED: Iodixanol 320 MG/ML 100 ML BOTTLE IV ONE (09:44)
[2017-11-16] MEDS ORDERED: Iodixanol 320 mg/ml 50 ml Sol IV ONE (09:46)
[2017-11-16] MEDS: Multivitamin With Minerals Tab PO SCH (09:57)
[2017-11-17] MEDS: Simethicone 80 mg Chewtab PO SCH ×4 (03:45→21:10)
[2017-11-17] MEDS: Multivitamin With Minerals Tab PO SCH (08:57)
[2017-11-17] MEDS ORDERED: Iodixanol 320 MG/ML 100 ML BOTTLE IV ONE (11:16)
[2017-11-17] MEDS ORDERED: Sodium Chloride 0.9% 100 ML ONE (11:17)
--- NOTE | 2017-11-17 13:02 | CT ---
Date of service: 11/17/2017 PROCEDURE: CT Abdomen and Pelvis with and without intravenous contrast HISTORY: check patency of ureters-w/wo contrast, CT urogram Relevant interventional history: November 14, 2017. Bilateral uterine artery and staging. Thirty-four week gestation status post section previously present with uterine bleeding and from placental abruption. COMPARISON: None. TECHNIQUE: Axial images of the abdomen were obtained in the pre contrast, portal venous and delayed phases of enhancement. Coronal and sagittal reformats were generated. Contrast dose: 99 cc Visipaque 320. Radiation dose: Total exam DLP = mGy-cm. This CT exam was performed using one or more of the following dose reduction techniques: Automated exposure control, adjustment of the mA and/or kV according to patient size, and/or use of iterative reconstruction technique. FINDINGS: LOWER THORAX: Unremarkable. LIVER: Unremarkable. No gross lesion or ductal dilatation. GALLBLADDER AND BILE DUCTS: Unremarkable. PANCREAS: Unremarkable. No gross lesion or ductal dilatation. SPLEEN: Unremarkable. ADRENALS: Unremarkable. No mass. KIDNEYS AND URETERS: Unremarkable. No hydronephrosis. No solid mass. Contrast is identified on delayed images and portions of the proximal ureters. The upper tract collecting systems are unremarkable without evidence of filling defects. The distal ureters are only intermittently visualized. Contrast is apparent in both ureters at the ureterovesical junction. There are no findings to suggest ureteral obstruction or extravasation of contrast from the ureters or collecting systems or urinary bladder. VASCULATURE: Unremarkable. No aortic aneurysm. BOWEL: Distention of the colon and small bowel likely postoperative ileus rather than obstruction. Dilated loops of mid and distal small bowel noted. Evidence of constipation without impaction. APPENDIX: Normal appendix. PERITONEUM: Trace free fluid identified in the pelvis/cul de sac. Focal air within the anterior aspects of the pelvis LYMPH NODES: Unremarkable. No enlarged lymph nodes. BLADDER: Contrast identified in the decompressed and otherwise unremarkable urinary bladder. REPRODUCTIVE: Markedly enlarged uterus orthogonal measurements 11.1 x 12.9 x 13.8 cm. No focal uterine abnormalities. BONES: No acute fracture. OTHER FINDINGS: Postoperative changes anterior abdominal pelvic wall including the rectus hematoma. Air interposed between the rectus muscle. IMPRESSION: Unremarkable collecting systems including upper tracts and ureters as visualized. No bladder abnormalities identified. Enlarged uterus consistent with medical, surgical an interventional history described above. Additional benign and/or incidental findings described above.
[2017-11-17 13:41] LABS: BASO % 0.1 % (0.0-2.0); EOS # 0.1 K/uL (0.0-0.7); EOS % 0.5 % (0.0-4.0); HEMOGLOBIN 9.1 g/dL (12.0-16.0); LYMPH # 2.1 K/uL (1.0-4.3); LYMPH % 15.7 % (20.0-40.0); MEAN CELL VOLUME 85.6 fl (81.0-99.0); MEAN CORPUSCULAR HEMOGLOBIN 28.3 pg (27.0-31.0); MEAN CORPUSCULAR HGB CONC 33.1 g/dL (33.0-37.0); MEAN PLATELET VOLUME 8.2 fl (7.2-11.7); MONO # 0.9 K/uL (0.0-0.8); MONO % 6.4 % (0.0-10.0); NEUT # 10.5 K/uL (1.8-7.0); NEUT % 77.3 % (50.0-75.0); NRBC % 0.1 % (0.0-0.0); RBC 3.21 Mil/uL (3.80-5.20); RED CELL DISTRIBUTION WIDTH 15.4 % (11.5-14.5); WHITE BLOOD COUNT 13.6 K/uL (4.8-10.8)
[2017-11-18] MEDS: Simethicone 80 mg Chewtab PO SCH ×2 (05:26→09:15)
--- NOTE | 2017-11-18 09:01 | OP ---
PROCEDURE DATE: 11/14/17 PREOPERATIVE DIAGNOSES: Second stage of labor, heavy vaginal bleeding, possible abruption of the placenta, face presentation. POSTOPERATIVE DIAGNOSES: Second stage of labor, heavy vaginal bleeding, possible abruption of the placenta, face presentation, uterine atony, left-sided uterine extension of the incision. PROCEDURES: Primary low transverse section via Pfannenstiel incision, repair of left uterine extension and left uterine artery ligation. SURGEON: Bert Grey DO CORPORATE LOGISTICS MANAGER: Ignacio Worthington MD (Dr Worthington is a board certifed OBGYN. His presence was necessary and vital to this difficult case) ; Dr. Denise, PGY-1 ANESTHESIOLOGISTS: 1. Terell Murguia MD 2. Dr. Segundo ESTIMATED BLOOD LOSS: 2000 mL. OPERATIVE FINDINGS: Large amount of blood noted upon entering the uterus. Live infant female delivered from a cephalic presentation. scores of 8 and 9 given at one and five minutes respectively. Placenta was delivered intact manually. Uterine atony was noted. IV Pitocin and IM Methergine given. Left uterine extension noted. This was repaired #1 with left uterine artery ligation. Hemostasis was assured. Gelfoam and Surgicel placed in the area. Ovaries and tubes appeared to be within normal limits. Intraoperatively, one packed red blood cell given. She was transferred to the Labor and Delivery postoperatively in guarded condition. DESCRIPTION OF PROCEDURE: [place] had an epidural catheter in place. She is brought to the operating room and placed in the supine position. Bleeding was still noted from the vagina. She was given epidural anesthesia. She was draped and prepped in the usual sterile manner. A urinary catheter was already in place as well as compression boots on both lower extremities. Once adequate anesthesia was obtained, a Pfannenstiel incision was made using a scalpel. Incision was then taken down to the underlying fascia using a dissecting scalpel. Fascia was nicked in the midline bilaterally using curved Herron scissors. Inferior aspect of the fascia was grasped between two Bebeto clamps, tented up and the rectus muscles both bluntly and sharply dissected. Same was done with the superior aspect of the fascia in the midline superiorly. The rectus muscle was bluntly. Peritoneum was identified, tented up using two Solange clamps. Using Metzenbaum scissors, this was incised and then extended superiorly and inferiorly with direct visualization of the bladder and intestine. Bladder blade was then inserted. A bladder flap was created by incising peritoneum on the uterus above the bladder line and then extended bilaterally using Metzenbaum scissors. Bladder flap was created digitally. Bladder blade was then inserted behind the bladder flap. A low transverse incision was made using the scalpel. Upon entering the uterus, large amount of blood was noted. This incision was extended bluntly. First, the 's head was delivered as atraumatic as possible and was bulb suctioned nasopharyngeally. Remainder of the was then delivered as atraumatically as possible. Cord was clamped and cut. was immediately handed to the is analyst in attendance. Cord blood and cord pH were obtained. Placenta was already from the uterus, appeared to be in abruption complete. Uterus was then exteriorized and cleared of debris and clots. IV Pitocin given as well as IM Methergine. First layer of the uterus closed using 0 Vicryl suture in an interlocking fashion. Second layer of the uterus closed using 0 Vicryl suture imbricating the first layer. Good hemostasis was assured. Posterior cul-de-sac was noted to be cleared of debris and clots. Some bleeding still noted on the left uterine incision. Attempts were made for hemostasis using 0 Vicryl suture in a ykepij-nv-vhehi fashion. Dr. Worthington was called in at this time for evaluation and assistance during the procedure. Hemostasis had been assured. Upon his entry into the operation, there were some oozing noted along the left uterine incision around the original sutures. A decision was made for uterine artery ligation on the left side. This was done using 0 Vicryl suture x1. It appeared to be controlled. There was a small area along the left broad ligament that was noted to be open. Decision was made to close the bladder flap and the peritoneum in this area using 2-0 Chromic suture in a running fashion. Gelfoam and Surgicel were placed in the area. Methergine - a second dose was given during the operation because of the uterine atony. In the posterior part of the uterus, there was noted to be a serosal laceration. This was closed in a rlxzyn-[id number]-najka fashion using 0 Vicryl suture x2. Gelfoam and Surgicel was placed on top and kept in place using 0 Vicryl suture x2. Once bladder flap was closed, Surgicel was placed above this area as well. Hemostasis was assured. All equipment were removed and accounted for. A 0 Vicryl suture was used to approximate the peritoneum in a running fashion. Irrigation was performed. Rectus muscle was approximated using 0 Vicryl suture x3. Fascia was then approximated using 0 Vicryl suture in a running fashion. Irrigation was performed. Skin was then approximated using skin yamileth. Pressure bandages applied. All equipments, sponges, and needles accounted for. During the procedure, she was noted to have tachycardia and given one unit of blood during the operation also. Dr. Segundo came in after [address] Murguia during the procedure secondary to the tachycardia and pain management. Bert Grey DO MTDGeovany
[2017-11-18] MEDS: Multivitamin With Minerals Tab PO SCH (09:15)
--- NOTE | 2017-11-18 10:21 | OBPPN ---
Datetime: 11/18/2017 07:56 PP Pain Prov: Within normal limits PP Nausea Prov: Denies PP Flatus Prov: Yes PP BM Prov: No PP Heart Prov: Normal PP Lungs Prov: Normal PP Abdomen/Uterus Prov: Normal PP Lochia Prov: Normal PP Impression Prov: Normal progression PP Plan Prov: Continue present management PP Progress Note Prov: Cyra: [id number] S: Pt is a 32 yo s/p C section due to malpresentation and placental abruption in 2nd stage of labor on 11/14/17 POD 4, patient had a post hemorrhage- uterine atony and repair of l eft uterine extension, FURNACE ATTENDANT hypotensive shock, transfused 3 units PRBCs ans 1 unit FFP, received uter ine artery embolization day 2. Seen and examined at bedside this am. Patient doing well reports her abdominal pain is better today and doesnt need any pain medication. OOB and ambulating well. Bottl e feeding. Able to tolerate a regular diet. Lochia is similar to menses. Voiding freely with no blood noted. Patient has been passing gas, still denies having a bowel movement. Denies fever/chills, CP,S OB, diarrhea or dizziness. O: BP:130/89 HR:98, T98.2 F CBC-9.1/27.5,WBC-13.6 blood type: O+, rubella: Immune PHYSICAL EXAM: GEN: AAOx3, Resting comfortably in bed, NAD HEENT: NCAT, White sclera, pink conjunctiva, oral mucosa moist. LUNGS: CTA B/L, no wheezing, rhonchi, or rales, B/L chest rise CVS: RRR, S1, S2, No murmurs, rubs, gallops ABD: ND, +BS, firm fundus @ umbilical level. Soft, appropriate TTP, Incision- clean, dry intact, n o erythema or drainage , no CVA tenderness EXT: no edema, negative Jonnie's sign, calves non tender NEURO/Psych: no gross focal deficit, preserved affect and mood. A/P 32 y/o s/p C section on 11/14/17 POD 4. Pt afebrile, tolerating pain with medication, -Continue post op care, CT urogram was negative for ureteral/bladder damage -Ferrous sulfate 325 PO BID due to Hg 9.1 -Encouraged and Ambulation -Ibuprofen 600mg 1 tab po mild pain -Percocet 5/35mg 1 tab po for severe pain -PNV 1 tab po daily -Zyhhryb64.2mg PO HS for constipation -Post op contraception-IUD -F/U 1 wk wound, 4-6 weeks for post- visit at [place] Karen Denise M.D. PGY-1 Patient was seen and case discussed with Dr. Michel The patient was seen with the resident I agree with the note IP PP Procedures: None Vital Signs Provider PP: Reviewed; Within Normal Limits Datetime: 11/17/2017 08:12 PP Extremities Prov: Normal PP C/S Incision Prov: Normal PP Progress Prov: Normal PP Comments Phys Exam Prov: Denies CVA tenderness
[2017-11-18 20:25] VITALS: BP 146/77; PULSE 97; RESP 20; TEMP 98.8; O2SAT 98
--- NOTE | 2017-12-11 00:13 | OBDCSUM ---
Datetime: 11/18/2017 11:55 Discharge Diagnosis, Provider: Term Delivered
== END 2017-11-18 16:00 | disposition home or self-care (01) | DRG 650 ==
LOC: H.EROB2 19:58 → H.L&D 23:42 → H.ICU/CCU 11-14 10:08 → H.OB/GYN 11-15 12:49
PROVIDERS: ADMIT Obstetrics & Gynecology; ATTEND Obstetrics & Gynecology
PROC: 4A1HXCZ Monitoring of Products of Conception, Cardiac Rate, External Approach (ICD-10-PCS; 2017-11-12)
PROC: 10D00Z1 Extraction of Products of Conception, Low, Open Approach (ICD-10-PCS; principal; 2017-11-14)
DX: O45.93 Premature separation of placenta, unspecified, third trimester (principal); O99.02 Anemia complicating childbirth; Z3A.34 34 weeks gestation of pregnancy; Z37.0 Single live birth; O72.1 Other immediate postpartum hemorrhage; O60.14X0 Preterm labor third trimester with preterm delivery third trimester, not applicable or unspecified; O32.9XX0 Maternal care for malpresentation of fetus, unspecified, not applicable or unspecified; N93.9 Abnormal uterine and vaginal bleeding, unspecified